=== PATIENT | female | born 2000 | race Caucasian/White ===

== ENCOUNTER 2020-12-22 17:42 | Outpatient (CLI) | payer BC ==
[2020-12-22 18:24] LABS: BHCG - Serum Negative (NEGATIVE); Pregs Control Background? CLEAR/WHITE (CLR/WHITE); Pregs Control Bar Appear? YES (CONTROL BAR)
[2020-12-23 13:57] LABS: SARS-CoV-2 PCR by NAA Not Detected (NotDetected)
== END 2020-12-22 17:43 | disposition home or self-care (01) ==
LOC: LABBT 17:42
PROVIDERS: ATTEND Otolaryngology Plastic Surgery within the Head & Neck
DX: Z01.812 Encounter for preprocedural laboratory examination (principal); J35.01 Chronic tonsillitis; J35.3 Hypertrophy of tonsils with hypertrophy of adenoids; J34.3 Hypertrophy of nasal turbinates; R09.81 Nasal congestion; Z20.822 Contact with and (suspected) exposure to COVID-19
CPT/HCPCS: 84703; 85014; U0003; U0005

== ENCOUNTER 2020-12-27 07:05 | Day surgery (SDC) | payer BC ==
[2020-12-26 13:26] VITALS: BMI 27.3
[2020-12-27] MEDS ORDERED: Lidocaine 4% Topical Sol 50 ML BOT ONE (07:10)
[2020-12-27] MEDS ORDERED: Fentanyl 100 MCG/2 ML VIAL ONE ×3 (08:12→09:50)
[2020-12-27] MEDS ORDERED: Dexamethasone 20 MG/5 ML VIAL ONE (08:15)
[2020-12-27] MEDS ORDERED: Lidocaine 1% PF 5 ML VIAL ONE (08:15)
[2020-12-27] MEDS ORDERED: Ondansetron PF 4 MG/2 ML Vial ONE (08:15)
[2020-12-27] MEDS ORDERED: PROPOFOL 200 MG/20 ML VIAL ONE (08:15)
[2020-12-27] MEDS ORDERED: Ferric Subsulfate (ASTRINGYN) 8 GM VIAL ONE (08:35)
[2020-12-27] MEDS ORDERED: methylPREDNISolone Acetate 40 mg/ml Vial ONE (08:40)
[2020-12-27] MEDS ORDERED: Midazolam HCl 2 mg/2 ml Vial ONE (08:57)
[2020-12-27] MEDS ORDERED: Promethazine HCl 25 MG/ML VIAL ONE (09:06)
[2020-12-27] MEDS ORDERED: diphenhydrAMINE 50 MG/ML VIAL ONE (09:30)
[2020-12-27] MEDS ORDERED: Meperidine HCl/PF 25 MG/ML VIAL ONE (09:33)
[2020-12-27] MEDS ORDERED: Hydrocodone-Acetamin 15 ML UDCUP ONE (10:31)
== END 2020-12-27 11:58 | disposition home or self-care (01) ==
LOC: SDC 07:05
PROVIDERS: ATTEND Otolaryngology Plastic Surgery within the Head & Neck
PROC: 0CTQ0ZZ Resection of Adenoids, Open Approach (ICD-10-PCS; principal; 2020-12-27)
PROC: 0CTPXZZ Resection of Tonsils, External Approach (ICD-10-PCS; principal; 2020-12-27)
DX: J35.03 Chronic tonsillitis and adenoiditis (principal); J32.9 Chronic sinusitis, unspecified; J34.3 Hypertrophy of nasal turbinates; Z86.16 Personal history of COVID-19
CPT/HCPCS: 88304; J1100; J1200; J2175; J2250; J2405; J2550; J2704; J2920; J3010